=== PATIENT | female | born 1945 | race Caucasian/White ===

== ENCOUNTER 2016-08-08 12:54 | Emergency (ER) | payer MEDICARE, OTHER ==
[~2016-08-08 12:54] MED LIST: ACID CONTROL20 MG PO; AZULFIDINE500 M1 PO; DEXILANT60 MG PO; HYDROCHLOROTHIA25 MG PO; IRON325 ( 651 PO; KEFLEX500 M1 PO; KLONOPIN1 MG PO; LISINOPRIL PO; LORTAB 5/500 TA1 TA1 PO; PANTOPRAZOLE SO40 MG PO; PREDNISONE10 MG PO; PROTONIX PO; ROBAXIN 750750 M1 PO; SPIRONOLAC1 TAB 25/2 PO; TALWIN NX TABLE1 TAB PO; VITAMIN D5000 UNIT PO
[2016-12-15] MEDS ORDERED: LOMOTIL WHITE2.5 M1 PO (13:16)
[2016-12-15] MEDS ORDERED: FLONASE 0.05% N16 G1 (13:17)
[2016-12-15] MEDS ORDERED: TALWIN NX50 MG TAB PO (13:18)
[2016-12-15] MEDS ORDERED: DEXILANT60 MG PO (13:18)
[2016-12-15] MEDS ORDERED: ROBAXIN 750750 M1 PO (13:18)
[2016-12-15] MEDS ORDERED: PRINIVIL20 M1 PO (13:19)
[2016-12-15] MEDS ORDERED: NORVASC10 MG PO (13:26)
[2016-12-15] MEDS ORDERED: HYDROCHLOROTHIA25 MG PO (13:26)
[2016-12-15] MEDS ORDERED: BRONCHAID PO (13:28)
[2016-12-15] MEDS ORDERED: BENADRYL25 M3 PO (13:30)
[2016-12-15] MEDS ORDERED: MELATONIN5 M1 PO (13:31)
[2016-12-15] MEDS ORDERED: VALERIAN ROOT250 MG PO (13:31)
[2016-12-15] MEDS ORDERED: TURMERIC500 M1 PO (13:31)
[2016-12-15] MEDS ORDERED: AWAKE200 MG PO (13:33)
[2016-12-15] MEDS ORDERED: ACETAMINOPHEN500 M5 PO (13:35)
[2016-12-15] MEDS ORDERED: ASPIR-TRIN325 MG PO (14:11)
== END 2016-08-08 13:00 | disposition home or self-care (01) ==
LOC: CED 12:54
DX: G89.29 Other chronic pain (principal); M25.511 Pain in right shoulder; I10 Essential (primary) hypertension; F17.210 Nicotine dependence, cigarettes, uncomplicated; Z79.899 Other long term (current) drug therapy
CPT/HCPCS: 96372; 99283; J2930

== ENCOUNTER → 2016-12-15 | Outpatient (CLI) | payer MEDICARE, OTHER ==
[~2016-12-15] MED LIST changes: +ACETAMINOPHEN500 M5 PO; +ASPIR-TRIN325 MG PO; +AWAKE200 MG PO; +BENADRYL25 M3 PO; +BRONCHAID PO; +FLONASE 0.05% N16 G1; +LOMOTIL WHITE2.5 M1 PO; +MELATONIN5 M1 PO; +NORVASC10 MG PO; +PRINIVIL20 M1 PO; +TALWIN NX50 MG TAB PO; +TURMERIC500 M1 PO; +VALERIAN ROOT250 MG PO
--- NOTE | ~2016-12-15 | EKG ---
PATIENT: CARLOS ENRIQUE JAMA UNIT #: [id number] Ventricular Rate: 69 BPM Atrial Rate: 69 BPM P-R Interval: 136 ms QRS Duration: 94 ms Q-T Interval: 406 ms QTC Calculation(Bezet): 435 ms P [place]: 19 degrees Calculated R [place]: 0 degrees Calculated T [place]: -6 degrees Diagnosis Line: Normal sinus rhythm Diagnosis Line: Cannot rule out Inferior infarct , age Diagnosis Line: undetermined Diagnosis Line: Borderline ECG Diagnosis Line: When compared with ECG of 04-JUL-2014 14:10, Diagnosis Line: Minimal criteria for Inferior infarct are now Diagnosis Line: Present Diagnosis Line: T wave inversion now evident in Inferior leads Diagnosis Line: Confirmed by CHASE MAN, JESSICA ([id number]) on 12/15/2016 Diagnosis Line: 6:23:50 PM INTERPRETING MD: CHASE MAN
[2016-12-15 13:10] LABS: HEMATOCRIT 37.9 % (35.0-45.0); HEMOGLOBIN 12.6 gm/dL (12.0-16.0); MEAN CELL VOLUME 97.9 FL (83-96); MEAN CORPUSCULAR HEMOGLOBIN 32.7 PG (28-34); MEAN CORPUSCULAR HGB CONC 33.4 g/dL (30-36); MEAN PLATELET VOLUME 7.5 FL (6.5-11.5); RED BLOOD COUNT 3.86 X10e (3.90-5.30); RED CELL DISTRIBUTION WIDTH 12.7 % (11.0-15.5); WHITE BLOOD COUNT 9.6 X10e3 (4.0-10.5)
[2016-12-15 13:36] LABS: BUN/CREATININE RATIO 26.36; CALCIUM SERUM 9.1 mg/dL (8.4-10.2); CREATININE SERUM 1.1 mg/dL (0.6-1.4); GLOM FILT RATE Estimated 50.5 mL/min (>60)
[2016-12-15 13:43] LABS: URINE APPEARANCE CLOUDY; URINE BILIRUBIN NEG (NEG); URINE BLOOD TRACE (NEG); URINE COLOR YELLOW; URINE GLUCOSE NEG (NEG); URINE KETONE NEG (NEG); URINE LEUKOCYTE ESTERASE 2+ (NEG); URINE NITRATE POS (NEG); URINE PROTEIN 1+ (NEG); URINE SPECIFIC GRAVITY 1.028 (1.003-1.035); URINE UROBILINOGEN 0.2 MG/DL (NEG)
[2016-12-15 13:44] LABS: URINE SOURCE CLEAN CATCH
[2016-12-15 13:48] LABS: CULTURE INDICATED? YES; URINE BACTERIA AUWI 4+ (NEGATIVE); URINE SQUAMOUS EPITHELIAL CELL OCC /[HPF]; UWBCS1 AUWI 100-200 (0-5)
== END | disposition home or self-care (01) ==
LOC: CAMB 12:34
PROVIDERS: Orthopaedic Surgery
DX: Z01.818 Encounter for other preprocedural examination (principal); M75.101 Unspecified rotator cuff tear or rupture of right shoulder, not specified as traumatic
CPT/HCPCS: 36415; 80048; 81003; 85027; 87086; 87088; 87186; 93005